=== PATIENT | female | born 1995 | race Two or more races ===

== ENCOUNTER 2018-08-23 22:05 | Emergency (ER) | payer OTHER ==
[~2018-08-23] VITALS: Ht 152.4 cm; Wt 50.7 kg
[2018-08-23 23:27] LABS: RAPID INFLUENZA A Negative (Negative); RAPID INFLUENZA B Negative (Negative)
[2018-08-23] MEDS ORDERED: IBUPROFEN 200 MG TABLET ONE (23:27)
--- NOTE | 2018-08-23 23:29 | NUR ---
PT MEDICATED PER OCT. PT RESTING COMFORTABLY IN [facility] AT THIS TIME. PT HAS CALL LIGHT WITHIN REACH AND DENIES ANY OTHER NEEDS AT THIS TIME.
[2018-08-23] MEDS ORDERED: IBUPROFEN 200 MG TABLET PO ONE (23:30)
[2018-08-24 00:10] VITALS: BP 128/77
--- NOTE | 2018-08-24 00:10 | NUR ---
PT D/C WITH D/C SUMMARY AND SCRIPTS. ALL QUESTIONS ANSWERED. PT DENIES ANY OTHER NEEDS PERTAINING TO THIS VISIT. PT AMBULATES TO REGISTRATION DESK WITH STEADY GAIT FOR D/C HOME.
== END 2018-08-24 00:13 | disposition home or self-care (01) ==
LOC: ED 08-24
DX: J06.9 Acute upper respiratory infection, unspecified (principal); N94.5 Secondary dysmenorrhea; F17.200 Nicotine dependence, unspecified, uncomplicated
CPT/HCPCS: 87400; 99283